=== PATIENT | female | born 1955 | race Caucasian/White ===

== ENCOUNTER → 2016-04-26 | Outpatient (CLI) | payer BC ==
[~2016-04-26] MED LIST: ANTIVERT25 MG PO; CALCIUM600 M2 PO; CEPHALEXIN500 M1 PO; CLONIDINE0.2 MG PO; DEXILANT60 M1 PO; DIFLUCAN150 MG PO; HUMALOG100 U/ML SC; HYDRODIURIL25 MG PO; KLOR-CON 1010 ME1 PO; LABETALOL HCL200 MG PO; LABETALOL100 MG PO; LANTUS SOLOS100 U/M1 SC; LEVOTHYROXINE0.05 M1 PO; METFORMIN HCL1000 MG PO; ROSUVASTATIN CA10 MG PO; SERTRALINE HYDR50 MG PO; TAMOXIFEN CITRA20 MG PO; VERAPAMIL HCL360 MG PO; VITAMIN D32000 UNIT PO
[2016-04-26 10:27] LABS: BILIRUBIN NEGATIVE (NEGATIVE); BLOOD NEGATIVE (NEGATIVE); CLARITY SL CLOUDY (CLEAR); COLOR YELLOW (YELLOW); GLUCOSE NEGATIVE (NEGATIVE); KETONE NEGATIVE (NEGATIVE); LEUKO ESTERASE NEGATIVE (NEGATIVE); NITRITE NEGATIVE (NEGATIVE); PROTEIN NEGATIVE (NEGATIVE); SPECIFIC GRAVITY 1.025 (1.005-1.030)
[2016-04-26 10:32] LABS: BASO # 0.1 10*3/uL (0.0-0.1); BASO % 0.7 % (0.0-1.0); EOS # 0.1 10*3/uL (0.0-0.4); EOS % 1.6 % (1.0-4.0); HEMATOCRIT 35.6 % (37.0-47.0); HEMOGLOBIN 10.9 g/dl (12.0-16.0); LYMPH # 1.2 10*3/uL (1.3-4.4); LYMPH % 13.6 % (27.0-41.0); MEAN CELL VOLUME 84.4 fl (81.0-99.0); MEAN CORPUSCULAR HGB 25.8 pg (27.0-31.0); MEAN CORPUSCULAR HGB CONC 30.6 g/dl (33.0-37.0); MEAN PLATELET VOLUME 11.4 fl (9.6-12.3); MONO # 0.7 10*3/uL (0.1-1.0); MONO % 8.2 % (3.0-9.0); NEUT # 6.6 10*3/uL (2.3-7.9); NEUT % 75.6 % (47.0-73.0); PLATELET COUNT AUTOMATED 174 10*3/uL (130-400); RED BLOOD COUNT 4.22 10*6/uL (4.10-5.10); RED CELL DISTRI WIDTH 15.6 % (0-14.5); WHITE BLOOD COUNT 8.7 10*3/uL (4.8-10.8)
[2016-04-26 10:50] LABS: CHOLESTEROL 164 mg/dL (<200); HDL CHOLESTEROL 53 mg/dl (40-60); LDL CHOLESTEROL 86 mg/dL (9-159); TRIGLYCERIDES 126 mg/dl (<150); VLDL CHOLESTEROL 25 mg/dL (6-40)
[2016-04-26 10:51] LABS: ALBUMIN 3.3 gm/dl (3.1-4.5); ALKALINE PHOSPHATASE 47 U/L (45-117); BILIRUBIN, TOTAL 0.8 mg/dl (0.2-1.0); BUN 15 mg/dl (7-24); CARBON DIOXIDE 29 mmol/L (21-32); CHLORIDE 104 mmol/L (98-107); EST GLOM FILT AFRICAN AMERICAN > 60 ml/min; GLUCOSE 77 mg/dL (65-99); POTASSIUM 3.9 mmol/L (3.5-5.1); SGOT/AST 29 IU/L (3-35); SGPT/ALT 35 U/L (12-78); SODIUM 142 mmol/L (136-145); TOTAL PROTEIN 6.7 gm/dL (6.4-8.2)
[2016-04-26 10:55] LABS: INTERNATIONAL NORM RATIO 1.1 (2.0-3.5); PROTHROMBIN TIME 11.5 SECONDS (9.0-12.4)
[2016-04-26 11:08] LABS: HEMOGLOBIN A1c 7.3 % (4.8-5.6)
[2016-04-26 11:31] LABS: BACTERIA 2+; MUCOUS 1+; URINE REFLEX COMMENT YES (NO)
== END | disposition home or self-care (01) ==
LOC: LAB 09:46
PROVIDERS: Family Medicine
DX: Z01.818 Encounter for other preprocedural examination (principal); E11.9 Type 2 diabetes mellitus without complications; I10 Essential (primary) hypertension; E78.00 Pure hypercholesterolemia, unspecified; M48.06 Spinal stenosis, lumbar region; M47.896 Other spondylosis, lumbar region; M54.5 Low back pain; M51.26 Other intervertebral disc displacement, lumbar region; Z85.3 Personal history of malignant neoplasm of breast; Z90.13 Acquired absence of bilateral breasts and nipples

== ENCOUNTER → 2016-09-06 | Outpatient (CLI) | payer BC ==
[2016-09-06 10:49] LABS: HEMOGLOBIN 9.3 g/dl (12.0-16.0); MEAN CELL VOLUME 74.9 fl (81.0-99.0); MEAN CORPUSCULAR HGB 21.8 pg (27.0-31.0); MEAN CORPUSCULAR HGB CONC 29.1 g/dl (33.0-37.0); MEAN PLATELET VOLUME 12.1 fl (9.6-12.3); RED BLOOD COUNT 4.27 10*6/uL (4.10-5.10); RED CELL DISTRI WIDTH 17.5 % (0-14.5); WHITE BLOOD COUNT 7.4 10*3/uL (4.8-10.8)
[2016-09-06 11:05] LABS: HEMOGLOBIN A1c 7.1 % (4.8-5.6)
[2016-09-06 11:23] LABS: ALBUMIN 3.4 gm/dl (3.1-4.5); BUN 17 mg/dl (7-24); CARBON DIOXIDE 30 mmol/L (21-32); CHLORIDE 102 mmol/L (98-107); CHOLESTEROL 137 mg/dL (<200); EST GLOM FILT AFRICAN AMERICAN > 60 ml/min; GLUCOSE 137 mg/dL (65-99); POTASSIUM 4.3 mmol/L (3.5-5.1); SGOT/AST 35 IU/L (3-35); SGPT/ALT 24 U/L (12-78); SODIUM 140 mmol/L (136-145)
[2016-09-06 11:26] LABS: ALKALINE PHOSPHATASE 47 U/L (45-117); BILIRUBIN, TOTAL 0.7 mg/dl (0.2-1.0); CPK 136 U/L (26-192); HDL CHOLESTEROL 40 mg/dl (40-60); LDL CHOLESTEROL 67 mg/dL (9-159); TRIGLYCERIDES 151 mg/dl (<150); VLDL CHOLESTEROL 30 mg/dL (6-40)
[2016-09-06 13:19] LABS: VITAMIN D, 25-HYDROXY 43.5 ng/mL (30-100)
== END | disposition home or self-care (01) ==
LOC: LAB 10:13
PROVIDERS: Family Medicine
DX: J98.4 Other disorders of lung (principal); I48.91 Unspecified atrial fibrillation; E78.00 Pure hypercholesterolemia, unspecified; E11.9 Type 2 diabetes mellitus without complications; D64.9 Anemia, unspecified; I10 Essential (primary) hypertension; Z85.3 Personal history of malignant neoplasm of breast; Z90.13 Acquired absence of bilateral breasts and nipples

== ENCOUNTER → 2017-09-22 | Outpatient (CLI) | payer BC ==
[2017-09-22 16:24] LABS: HEMATOCRIT 39.3 % (37.0-47.0); HEMOGLOBIN 12.9 g/dl (12.0-16.0); MEAN CELL VOLUME 76.3 fl (81.0-99.0); MEAN CORPUSCULAR HGB CONC 32.8 g/dl (33.0-37.0); MEAN PLATELET VOLUME 11.6 fl (9.6-12.3); RED BLOOD COUNT 5.15 10*6/uL (4.10-5.10); WHITE BLOOD COUNT 10.3 10*3/uL (4.8-10.8)
[2017-09-22 16:43] LABS: ALBUMIN 4.4 gm/dl (3.1-4.5); ALKALINE PHOSPHATASE 77 U/L (45-117); BUN 42 mg/dl (7-24); CHLORIDE 99 mmol/L (98-107); CHOLESTEROL 148 mg/dL (<200); CREATININE 1.95 mg/dL (0.55-1.02); HDL CHOLESTEROL 36 mg/dl (40-60); LDL CHOLESTEROL 78 mg/dL (9-159); POTASSIUM 4.9 mmol/L (3.5-5.1); SGOT/AST 31 IU/L (3-35); SGPT/ALT 43 U/L (12-78); SODIUM 134 mmol/L (136-145); TOTAL PROTEIN 8.4 gm/dL (6.4-8.2); TRIGLYCERIDES 171 mg/dl (<150); VLDL CHOLESTEROL 34 mg/dL (6-40)
[2017-09-22 16:49] LABS: FREE T4 2.08 ng/dl (0.76-1.46)
[2017-09-22 16:50] LABS: THYROID STIM HORMONE (HS) < 0.005 uIU/ml (0.358-4.75)
== END | disposition home or self-care (01) ==
LOC: LAB 15:37
DX: E03.9 Hypothyroidism, unspecified (principal); E55.9 Vitamin D deficiency, unspecified; E78.00 Pure hypercholesterolemia, unspecified; K74.60 Unspecified cirrhosis of liver

== ENCOUNTER 2017-11-09 12:00 | Inpatient (IN) | payer BC ==
[~2017-11-09] VITALS: Ht 165.1 cm; Wt 93.0 kg
--- NOTE | ~2017-11-09 | CON ---
[place], [place] REPORT OF CONSULTATION NAME: AVELINO FORDE UNIT #: [id number] ROOM: 407 DOCTOR: GAGAN DIAMONDRIVER BIRTHDATE: [birth year] DOS: 11/09/2017 HISTORY OF PRESENT ILLNESS: The patient is a 62-year-old obese female with a known history of atrial fibrillation, status post ablation on flecainide, being followed by electrophysiology, staying in sinus rhythm, admitted with probable syncope of hypoglycemic etiology. Her troponin was mildly elevated, nonspecific. She denies any chest discomfort. No history of coronary artery disease. The patient is now following at [facility]. She does have chronic liver disease, also has atrial fibrillation, status post ablation. She is also followed for multiple lung and thyroid nodules. She denies any chest pain, shortness of breath, or palpitations. PAST MEDICAL HISTORY: Significant for breast cancer, depression, diabetes, atrial fibrillation, Graves disease, and TIA. PAST SURGICAL HISTORY: Mastectomy, laminectomy, and tonsillectomy. HOME MEDICATIONS: Eliquis, clonidine, insulin, labetalol, atorvastatin, and verapamil. ALLERGIES: YASMIN INHIBITORS. SOCIAL HISTORY: She does not smoke and does not use any drugs. FAMILY HISTORY: Noncontributory except for history of hypertension, diabetes, and Parkinson's in the family. REVIEW OF SYSTEMS: CONSTITUTIONAL: No fever, no chills. HEENT: No visual disturbances or hearing problems. CARDIOVASCULAR SYSTEM: As per HPI. GASTROINTESTINAL: No nausea, no vomiting. GENITOURINARY: No dysuria. NEUROLOGICAL: Stable. PHYSICAL EXAMINATION: VITAL SIGNS: Blood pressure is 170/70. She is in sinus rhythm. HEENT: Unremarkable. NECK: Supple. No JVD. LUNGS: Clear. HEART: Sounds are regular. ABDOMEN: Soft, nontender. NEUROLOGICAL: Stable. LABORATORY DATA: Electrolytes are all normal. Troponin is 0.2, nonspecific. Hemoglobin is 11.2 and hematocrit is 35. EKG sinus with nonspecific ST-T changes. IMPRESSION: Near syncope, hypoglycemia, history of atrial fibrillation, in sinus rhythm; history of hypertension, diabetes, and chronic kidney disease. [place], [place] REPORT OF CONSULTATION NAME: AVELINO FORDE UNIT #: [id number] ROOM: 407 DOCTOR: GAGAN DIAMOND,RIVER BIRTHDATE: [birth year] RECOMMENDATIONS: Continue the present care. I wanted to get an echocardiogram, but the patient states that she had one done in [facility]. Continue the apixaban and verapamil as ordered. Monitor the heart rate closely. Monitor the blood sugar closely and we will follow up. RIVER FARAH MD CM:CONSTR:REPORT OF CONSULTATION 1832 11/10/17 0120 interface
--- NOTE | ~2017-11-09 | EKG ---
[place], [place] ELECTROCARDIOGRAM REPORT NAME: AVELINO FORDE UNIT #: [id number] ROOM: 407 DOCTOR: NEW DRAFT REPORT BIRTHDATE: [birth year] [facility] Test Date: 2017-11-09 Test Time: 14:03:34 Pat Name: AVELINO FORDE Department: Room: Gender: F Installation Drafter: : 1955 Requested By: ALEC COREA Order Number: [id number] Reading MD: Nolan Adkins MD Measurements Intervals [place] Rate: 75 P: 27 GA: 198 QRS: 25 QRSD: 90 T: -20 QT: 427 QTc: 477 Interpretive Statements Sinus rhythm Probable left atrial enlargement Borderline repolarization abnormality non specific st changes Electronically Signed On 11-10-2017 11:31:33 PDT by Nolan Adkins MD CM:EKGRPT:ELECTROCARDIOGRAM REPORT [id number] ALEC WOLFF DRAFT REPORT ALEC COREA MD
[2017-11-09 12:04] VITALS: BP 124/56
[2017-11-09] MEDS ORDERED: CLONIDINE HCL0.3 MG PO (12:11)
[2017-11-09] MEDS ORDERED: BASAG SOL SQ (12:11)
[2017-11-09] MEDS ORDERED: FEMARA2.5 MG PO (12:12)
[2017-11-09] MEDS ORDERED: ELIQUIS2.5 M1 PO (12:33)
[2017-11-09 12:34] LABS: BASO # 0.1 10*3/uL (0.0-0.1); BASO % 0.7 % (0.0-1.0); EOS # 0.2 10*3/uL (0.0-0.4); EOS % 2.2 % (1.0-4.0); HEMOGLOBIN 11.2 g/dl (12.0-16.0); LYMPH # 1.8 10*3/uL (1.3-4.4); LYMPH % 20.5 % (27.0-41.0); MEAN CELL VOLUME 79.7 fl (81.0-99.0); MEAN CORPUSCULAR HGB 25.5 pg (27.0-31.0); MEAN PLATELET VOLUME 11.2 fl (9.6-12.3); MONO # 0.9 10*3/uL (0.1-1.0); MONO % 9.9 % (3.0-9.0); NEUT # 5.7 10*3/uL (2.3-7.9); NEUT % 66.6 % (47.0-73.0); PLATELET COUNT AUTOMATED 172 10*3/uL (130-400); RED BLOOD COUNT 4.39 10*6/uL (4.10-5.10); RED CELL DISTRI WIDTH 15.6 % (0-14.5); WHITE BLOOD COUNT 8.6 10*3/uL (4.8-10.8)
[2017-11-09 12:41] VITALS: BP 116/70
[2017-11-09 12:52] LABS: ALBUMIN 3.7 gm/dl (3.1-4.5); CREATININE 1.16 mg/dL (0.55-1.02); TOTAL PROTEIN 7.3 gm/dL (6.4-8.2)
[2017-11-09 12:59] LABS: TROPONIN I 0.205 ng/ml (<0.045)
[2017-11-09 13:09] LABS: BILIRUBIN NEGATIVE (NEGATIVE); BLOOD NEGATIVE (NEGATIVE); CLARITY CLEAR (CLEAR); COLOR YELLOW (YELLOW); GLUCOSE NEGATIVE (NEGATIVE); KETONE NEGATIVE (NEGATIVE); LEUKO ESTERASE TRACE (NEGATIVE); NITRITE NEGATIVE (NEGATIVE); PH 5.5 (5.0-9.0); SPECIFIC GRAVITY 1.025 (1.005-1.030); UROBILINOGEN 0.2 E.U./dl (0.2-1.0)
[2017-11-09 13:46] LABS: BACTERIA TRACE; MUCOUS 1+
[2017-11-09 14:45] VITALS: BP 170/72
[2017-11-09 15:00] VITALS: BP 170/72
[2017-11-09 16:00] VITALS: BP 184/88
[2017-11-09] MEDS ORDERED: FLECAINIDE ACET50 M1 PO ×2 (16:14→19:35)
[2017-11-09] MEDS ORDERED: ZOCOR10 MG PO (16:14)
[2017-11-09] MEDS ORDERED: LASIX20 MG PO (16:16)
[2017-11-09] MEDS ORDERED: RANITIDINE HCL150 M1 PO (16:16)
[2017-11-09] MEDS ORDERED: ALDACTONE50 M1 PO (16:17)
[2017-11-09] MEDS ORDERED: ELIQUIS5 M1 PO (19:36)
[2017-11-09 20:00] VITALS: BP 186/83
[2017-11-10] VITALS: BP 147/88
[2017-11-10 07:56] LABS: BASO % 0.4 % (0.0-1.0); EOS # 0.2 10*3/uL (0.0-0.4); EOS % 2.6 % (1.0-4.0); HEMATOCRIT 31.9 % (37.0-47.0); HEMOGLOBIN 10.1 g/dl (12.0-16.0); LYMPH # 2.3 10*3/uL (1.3-4.4); LYMPH % 31.3 % (27.0-41.0); MEAN CELL VOLUME 80.2 fl (81.0-99.0); MEAN CORPUSCULAR HGB 25.4 pg (27.0-31.0); MEAN CORPUSCULAR HGB CONC 31.7 g/dl (33.0-37.0); MEAN PLATELET VOLUME 11.2 fl (9.6-12.3); MONO # 0.7 10*3/uL (0.1-1.0); MONO % 9.7 % (3.0-9.0); NEUT # 4.1 10*3/uL (2.3-7.9); NEUT % 55.7 % (47.0-73.0); PLATELET COUNT AUTOMATED 149 10*3/uL (130-400); RED BLOOD COUNT 3.98 10*6/uL (4.10-5.10); RED CELL DISTRI WIDTH 15.4 % (0-14.5); WHITE BLOOD COUNT 7.3 10*3/uL (4.8-10.8)
[2017-11-10 08:00] VITALS: BP 184/76
[2017-11-10 08:12] LABS: CHLORIDE 105 mmol/L (98-107); POTASSIUM 4.3 mmol/L (3.5-5.1); SODIUM 141 mmol/L (136-145)
[2017-11-10 08:27] LABS: BUN 19 mg/dl (7-24); CHOLESTEROL 142 mg/dL (<200); CREATININE 1.06 mg/dL (0.55-1.02); FREE T4 2.14 ng/dl (0.76-1.46); HDL CHOLESTEROL 37 mg/dl (40-60); LDL CHOLESTEROL 67 mg/dL (9-159); PHOSPHOROUS 4.8 mg/dL (2.5-4.9); TRIGLYCERIDES 190 mg/dl (<150); VLDL CHOLESTEROL 38 mg/dL (6-40)
[2017-11-10 08:28] LABS: THYROID STIM HORMONE (HS) < 0.005 uIU/ml (0.358-4.75)
[2017-11-10 09:12] LABS: VITAMIN D, 25-HYDROXY 69.1 ng/mL (30-100)
== END 2017-11-10 13:50 | disposition home or self-care (01) | DRG 312 ==
LOC: ED 12:00 → 4E 13:26 → EDHOLD 13:26 → 4E 13:51
PROVIDERS: Emergency Medicine; Internal Medicine
DX: R55 Syncope and collapse (principal); E11.22 Type 2 diabetes mellitus with diabetic chronic kidney disease; E11.649 Type 2 diabetes mellitus with hypoglycemia without coma; I13.10 Hypertensive heart and chronic kidney disease without heart failure, with stage 1 through stage 4 chronic kidney disease, or unspecified chronic kidney disease; N18.2 Chronic kidney disease, stage 2 (mild); D50.9 Iron deficiency anemia, unspecified; T38.3X5A Adverse effect of insulin and oral hypoglycemic [antidiabetic] drugs, initial encounter; E78.5 Hyperlipidemia, unspecified; F32.9 Major depressive disorder, single episode, unspecified; R74.8 Abnormal levels of other serum enzymes; I48.91 Unspecified atrial fibrillation; E03.9 Hypothyroidism, unspecified; E05.00 Thyrotoxicosis with diffuse goiter without thyrotoxic crisis or storm; K70.30 Alcoholic cirrhosis of liver without ascites; E79.0 Hyperuricemia without signs of inflammatory arthritis and tophaceous disease; Z79.4 Long term (current) use of insulin; Y92.89 Other specified places as the place of occurrence of the external cause; Z88.8 Allergy status to other drugs, medicaments and biological substances; Z79.84 Long term (current) use of oral hypoglycemic drugs; Z79.899 Other long term (current) drug therapy; Z85.3 Personal history of malignant neoplasm of breast; Z86.73 Personal history of transient ischemic attack (TIA), and cerebral infarction without residual deficits; Z90.13 Acquired absence of bilateral breasts and nipples; Z82.49 Family history of ischemic heart disease and other diseases of the circulatory system; Z83.3 Family history of diabetes mellitus; Z82.3 Family history of stroke; Z82.0 Family history of epilepsy and other diseases of the nervous system; Z79.01 Long term (current) use of anticoagulants

== ENCOUNTER 2018-11-03 12:08 | Emergency (ER) | payer BC ==
[~2018-11-03] VITALS: Ht 165.1 cm; Wt 103.0 kg
--- NOTE | ~2018-11-03 | EKG ---
[place], [place] ELECTROCARDIOGRAM REPORT NAME: AVELINO FORDE UNIT #: [id number] ROOM: DOCTOR: EPIPHANY DRAFT REPORT BIRTHDATE: [birth year] [facility] Test Date: 2018-11-03 Test Time: 12:37:46 Pat Name: AVELINO FORDE Department: Room: Gender: F Manager Float: Sydney hCairez : 1955 Requested By: JOE VINSON DNP Order Number: [id number] Reading MD: Maureen Mccormick MD Measurements Intervals [place] Rate: 59 P: -38 ME: 224 QRS: 21 QRSD: 103 T: 0 QT: 449 QTc: 445 Interpretive Statements Sinus rhythm Prolonged ME interval Borderline repolarization abnormality Compared to ECG 11/09/2017 14:03:34 First degree AV block now present ST (T wave) deviation no longer present Electronically Signed On 11-04-2018 9:19:08 PDT by Maureen Mccormick MD CM:EKGRPT:ELECTROCARDIOGRAM REPORT [id number] JOE VINSON DNP EPIPHANY DRAFT REPORT JOE VINSON DNP
[~2018-11-03 12:08] MED LIST changes: +ALDACTONE50 M1 PO; +BASAG SOL SQ; +CLONIDINE HCL0.3 MG PO; +ELIQUIS2.5 M1 PO; +ELIQUIS5 M1 PO; +FEMARA2.5 MG PO; +FLECAINIDE ACET50 M1 PO; +LASIX20 MG PO; +RANITIDINE HCL150 M1 PO; +ZOCOR10 MG PO
[2018-11-03 12:09] VITALS: BP 184/81
[2018-11-03 12:51] LABS: BASO # 0.1 10*3/uL (0.0-0.1); BASO % 0.8 % (0.0-1.0); EOS # 0.1 10*3/uL (0.0-0.4); EOS % 1.7 % (1.0-4.0); HEMATOCRIT 33.7 % (37.0-47.0); HEMOGLOBIN 10.7 g/dl (12.0-16.0); LYMPH # 1.4 10*3/uL (1.3-4.4); MEAN CELL VOLUME 87.1 fl (81.0-99.0); MEAN CORPUSCULAR HGB 27.6 pg (27.0-31.0); MEAN CORPUSCULAR HGB CONC 31.8 g/dl (33.0-37.0); MEAN PLATELET VOLUME 11.6 fl (9.6-12.3); MONO # 0.4 10*3/uL (0.1-1.0); MONO % 6.5 % (3.0-9.0); NEUT # 4.5 10*3/uL (2.3-7.9); NEUT % 69.5 % (47.0-73.0); PLATELET COUNT AUTOMATED 134 10*3/uL (130-400); RED BLOOD COUNT 3.87 10*6/uL (4.10-5.10); RED CELL DISTRI WIDTH 13.8 % (0-14.5); WHITE BLOOD COUNT 6.4 10*3/uL (4.8-10.8)
[2018-11-03 13:07] LABS: ALBUMIN 3.8 gm/dl (3.1-4.5); ALKALINE PHOSPHATASE 79 U/L (45-117); BUN 18 mg/dl (7-24); CHLORIDE 105 mmol/L (98-107); CREATININE 1.34 mg/dL (0.55-1.02); LIPASE 242 U/L (73-393); POTASSIUM 4.5 mmol/L (3.5-5.1); SGOT/AST 12 IU/L (3-35); SGPT/ALT 26 U/L (12-78); SODIUM 139 mmol/L (136-145); TOTAL PROTEIN 7.3 gm/dL (6.4-8.2)
[2018-11-03 13:36] LABS: BILIRUBIN NEGATIVE (NEGATIVE); BLOOD NEGATIVE (NEGATIVE); CLARITY SL CLOUDY (CLEAR); COLOR YELLOW (YELLOW); GLUCOSE 3+ (NEGATIVE); KETONE NEGATIVE (NEGATIVE); LEUKO ESTERASE 1+ (NEGATIVE); NITRITE NEGATIVE (NEGATIVE); UROBILINOGEN 0.2 E.U./dl (0.2-1.0)
[2018-11-03 13:57] LABS: BACTERIA 2+; EPITHELIAL CELLS 15-20; WBC TNTC wbc/hpf (0-5)
== END 2018-11-03 15:35 | disposition home or self-care (01) ==
LOC: ED 12:08
PROVIDERS: Nurse Practitioner Family
DX: M54.6 Pain in thoracic spine (principal); R10.13 Epigastric pain; I10 Essential (primary) hypertension; R79.89 Other specified abnormal findings of blood chemistry; E11.9 Type 2 diabetes mellitus without complications; E78.5 Hyperlipidemia, unspecified; I48.91 Unspecified atrial fibrillation; Z85.3 Personal history of malignant neoplasm of breast; Z88.8 Allergy status to other drugs, medicaments and biological substances; Z91.048 Other nonmedicinal substance allergy status; Z79.899 Other long term (current) drug therapy; Z79.4 Long term (current) use of insulin; Z98.890 Other specified postprocedural states